=== PATIENT | male | born 1995 | race Caucasian/White ===

== ENCOUNTER 2021-01-24 00:49 | Emergency (ER) | payer SELFPAY ==
--- NOTE | ~2021-01-24 | CT_ITS ---
EXAMINATION: CT abdomen pelvis w con INDICATION: Nausea and diarrhea TECHNIQUE: Computed tomographic images of the abdomen and pelvis were obtained after the administrati on of 100 cc of Omnipaque 350 intravenous contrast. The dose-length product (DLP) was 488.60 mGy-cm. Automated exposure control and iterative reconstruction technique were employed. COMPARISON: None available FINDINGS: Minimal dependent atelectasis is present in the lung bases. The heart size is normal. The l iver, spleen, pancreas, gallbladder, and adrenal glands are normal. The kidneys are unremarkable. No pathologically enlarged abdominal or pelvic lymph nodes are identified. There is no free intraperiton eal gas or evidence of bowel obstruction. The appendix is normal. IMPRESSION: 1. No CT correlate for the patient's symptoms. Reviewed, dictated and finalized at location A. [facility]
[2021-01-24 01:02] VITALS: BP 142/86; PULSE 109; RESP 19; TEMP 37.6; O2SAT 99
[2021-01-24 05:46] VITALS: BP 128/76; PULSE 105; PULSE 107; RESP 20; RESP 23; TEMP 37.8; O2SAT 97; O2SAT 98
--- NOTE | 2021-01-24 05:56 | ED.GENADULT ---
HPI - General Adult General Chief complaint: Abdominal Pain <Florencio Harding MD - Last Filed: 01/24/21 06:24> Stated complaint: abd pain, n/v/d, burning urination <Florencio Harding MD - Last Filed: 01/24/21 06:24> Time Seen by Provider: 01/24/21 05:51 <Florencio Harding MD - Last Filed: 01/24/21 06:24> History of Present Illness HPI narrative: Patient is a 25-year-old gentleman who presents the emergency department with chief complaint of sore throat abdominal pain. Patient states for the last several weeks he has had nausea has had diarrhea and has had discomfort in his lower quadrants of his abdomen. Patient states is also developed a sore throat while this is been going on. The patient states he has not seen a provider about it reports no prior surgical history of his appendectomy patient states symptoms or not improved by anything reports is worse whenever he tries to eat or drink anything. <Florencio Harding MD - Last Filed: 01/24/21 06:24> Related Data Allergies/adverse reactions: Allergies Allergy/AdvReac Type Severity Reaction Status Date / Time amoxicillin Allergy Rash Verified 01/24/21 05:47 Penicillins Allergy Rash Verified 01/24/21 05:47 <Florencio Harding MD - Last Filed: 01/24/21 06:24> Review of Systems Review of Systems: A 10 system review of systems was completed on the patient and is negative except for what is stated in the HPI. Nursing and ancillary documentation was reviewed. <Florencio Harding MD - Last Filed: 01/24/21 06:24> Exam Narrative: GENERAL: Well-appearing, well-nourished, and in no acute distress. HEAD: Normocephalic, atraumatic. EYES: PERRLA and EOMI. ENT: Nares clear, no rhinorrhea or epistaxis. Mucous membranes moist. NECK: Supple. CHEST: Clear to auscultation. No respiratory distress. HEART: Regular rate and rhythm. No murmur heard. Normal peripheral pulses. ABDOMEN: Soft, diffusely tender in the lower quadrants, nondistended, normal active bowel sounds. EXTREMITIES: Normal range of motion. No edema. SKIN: Warm, dry, no rash. NEURO: No focal deficits. Alert and oriented x3. PSYCH: Normal mood and affect. <Florencio Harding MD - Last Filed: 01/24/21 06:24> Course Reevaluation(s) Reevaluation #1: Patient is sleeping. I discussed CT scan was unremarkable. On review of labs I will send hepatitis panel due to elevated liver enzymes and have patient to follow up. His pain is not located in RUQ, He will also be tested for covid since he is having cough, runny nose and sore throat. Strep is negative <Shannan Shirley MD - Last Filed: 01/24/21 19:50> Date: 01/24/21 <Shannan Shirley MD - Last Filed: 01/24/21 19:50> Time: 07:51 <Shannan Shirley MD - Last Filed: 01/24/21 19:50> Vital Signs Vital signs: Vital Signs Temperature 99.6 F 01/24/21 01:02 Pulse Rate 109 H 01/24/21 01:02 Respiratory Rate 19 01/24/21 01:02 Blood Pressure 142/86 H 01/24/21 01:02 Pulse Oximetry 99 01/24/21 01:02 Temperature 100.1 F H 01/24/21 05:46 Pulse Rate 84 01/24/21 08:14 Respiratory Rate 18 01/24/21 08:14 Blood Pressure 108/58 L 01/24/21 08:14 Pulse Oximetry 100 01/24/21 08:14 <Florencio Harding MD - Last Filed: 01/24/21 06:24> Vital Signs Temperature 99.6 F 01/24/21 01:02 Pulse Rate 109 H 01/24/21 01:02 Respiratory Rate 19 01/24/21 01:02 Blood Pressure 142/86 H 01/24/21 01:02 Pulse Oximetry 99 01/24/21 01:02 Temperature 100.1 F H 01/24/21 05:46 Pulse Rate 84 01/24/21 08:14 Respiratory Rate 18 01/24/21 08:14 Blood Pressure 108/58 L 01/24/21 08:14 Pulse Oximetry 100 01/24/21 08:14 <Shannan Shirley MD - Last Filed: 01/24/21 19:50> Medical Decision Making Vital Signs Vital Signs: Vital Signs Temperature 99.6 F 01/24/21 01:02 Pulse Rate 109 H 01/24/21 01:02 Respiratory Rate 19 01/24
[2021-01-24 06:01] VITALS: BP 134/80; PULSE 102; RESP 23; O2SAT 99
[2021-01-24] MEDS: SODIUM CHLORIDE 0.9% IV 1,000 ML 999 ML IV CONT (06:09)
[2021-01-24] MEDS: ONDANSETRON INJ 4 MG/2 ML VIAL IV PUSH (06:11)
[2021-01-24] MEDS: MORPHINE SULFATE (*CRX) 4 MG/ML INJ IV PUSH (06:12)
[2021-01-24 06:31] VITALS: BP 127/73; PULSE 90; RESP 18
[2021-01-24 06:36] LABS: Basophils Percent Auto 0.3 % (0.2-1.2); Eosinophils Absolute Auto 0.2 K/mm3 (0-0.3); Eosinophils Percent Auto 1.6 % (0-4.4); Hematocrit 46.1 % (42.0-52.0); Hemoglobin 15.4 g/dL (14.0-18.0); Immature Granulocyte Absolute 0.07 K/mm3 (0.00-0.031); Immature Granulocyte Percent A 0.6 % (0-0.5); Lymphocytes Absolute Auto 1.97 K/mm3 (0.9-3.2); Lymphocytes Percent Auto 18.2 % (18.3-44.2); Mean Corpuscular HGB Conc 33.4 g/dl (32-36); Mean Corpuscular Hemoglobin 28.8 pg (26-34); Mean Corpuscular Volume 86.2 fl (80-100); Mean Platelet Volume 11.2 fl (7.4-10.4); Monocytes Absolute Auto 1.5 K/mm3 (0.1-0.6); Monocytes Percent Auto 13.9 % (2.6-8.5); Neutrophils Absolute Auto 7.1 K/mm3 (1.3-6.7); Neutrophils Percent Auto 65.4 % (45.5-73.1); Platelet Count Result 195 k/mm3 (150-375); Red Blood Count 5.35 M/mm3 (4.6-6.20); Red Cell Distribution Width 13.5 % (11.5-14.5); White Blood Count 10.8 K/mm3 (4.5-10.0)
[2021-01-24 06:40] LABS: Alanine Aminotransferase 445 U/L (4-50); Albumin Level 4.5 g/dL (3.5-5.1); Alkaline Phosphatase 119 U/L (38-126); Anion Gap 7 mmol/L (8-16); Aspartate Amino Transferase 182 U/L (17-59); Bilirubin,Total 1.1 mg/dL (0.2-1.3); Blood Urea Nitrogen 12 mg/dL (9-20); Calcium 9.1 mg/dL (8.4-10.2); Carbon Dioxide 26 mmol/L (22-30); Chloride 99 mmol/L (98-107); Estimated CRCL calculation 97 ml/min; Estimated Glomerular Filt Rate > 60; Glucose 105 mg/dL (65-110); Potassium 4.3 mmol/L (3.4-5.0); Sodium 132 mmol/L (137-145)
[2021-01-24 06:57] LABS: Add Urine Microscopic? NO; Appearance Urine Clear (Clear); Bilirubin Urine Negative (Negative); Blood Urine Negative (Negative); Color Urine Yellow (Yellow); Glucose Urine UA Negative (Negative); Ketones Urine Negative (Negative); Leukocyte Esterase Ur Negative LEU/UL (Negative); Nitrate Urine Negative (Negative); Protein Urine Negative (Negative); Specific Grav Ur 1.021 (1.001-1.035); Urobilinogen Urine Negative mg/dL (<2.0)
[2021-01-24 07:35] LABS: Magnesium 1.7 mg/dL (1.6-2.3)
[2021-01-24 07:36] LABS: Lactic Acid Reflex 0.5 mmol/L (0.7-2.1)
[2021-01-24 08:14] VITALS: BP 108/58; PULSE 84; RESP 18; O2SAT 100
[2021-01-24 10:06] LABS: Hepatitis B Surface Antigen Negative (Negative)
[2021-01-24 10:12] LABS: HAV RESULT Negative (Negative); Hepatitis B Core IgM Result Negative (Negative)
[2021-01-24 10:24] LABS: Hepatitis C Virus Antibody Negative (Negative)
[2021-01-27 20:28] LABS: SARS-CoV-2 RNA PCR Negative
== END 2021-01-24 08:22 | disposition home or self-care (01) ==
PROVIDERS: Emergency Medicine; Emergency Provider General Practice
DX: R10.32 Left lower quadrant pain (principal); R10.31 Right lower quadrant pain; R74.01 Elevation of levels of liver transaminase levels; Z20.822 Contact with and (suspected) exposure to COVID-19
CPT/HCPCS: 36415; 74177; 80053; 80074; 81003; 83605; 83735; 85025; 87081; 87880; 96361; 96374; 96375; 99284; C9803; J0131; J2270; J2405; J7030; Q9967; U0003; U0005

== ENCOUNTER 2022-04-12 20:32 | Emergency (ER) | payer OTHER, SELFPAY ==
--- NOTE | 2022-04-12 20:46 | PC.NURSE ---
Patient states he is SI and HI and handed this RN a knife and bag of tobacco and a certified physician's assistant. This RN labeled a belongings bag and handed this bag to ED security that was sitting at the frontend engineer.
--- NOTE | 2022-04-12 20:48 | ED.GENADULT ---
HPI - General Adult General Chief complaint: Psychiatric Symptoms Stated complaint: SI/HI Time Seen by Provider: 04/12/22 20:41 History of Present Illness HPI narrative: Patient a 26-year-old gentleman who presents the emergency department with chief complaint of suicidal ideation. Patient reports that he is homeless and has been having thoughts of harming himself. Patient states that he would go by fentanyl and overdose to kill himself he also states that he might also hurt others in the process. Patient reports that he has been prior hospitalized for psychiatric issues reports that he sees a counselor and is currently off of his medications and was taking trazodone and long-acting Haldol injections. Related Data Allergies Allergy/AdvReac Type Severity Reaction Status Date / Time amoxicillin Allergy Rash Verified 01/24/21 05:47 Penicillins Allergy Rash Verified 01/24/21 05:47 Review of Systems Review of Systems: A 10 system review of systems was completed on the patient and is negative except for what is stated in the HPI. Nursing and ancillary documentation was reviewed. Exam Narrative: GENERAL: Well-appearing, well-nourished, and in no acute distress. HEAD: Normocephalic, atraumatic. EYES: PERRLA and EOMI. ENT: Nares clear, no rhinorrhea or epistaxis. Mucous membranes moist. NECK: Supple. CHEST: Clear to auscultation. No respiratory distress. HEART: Regular rate and rhythm. No murmur heard. Normal peripheral pulses. ABDOMEN: Soft, nontender, nondistended, normal active bowel sounds. EXTREMITIES: Normal range of motion. No edema. SKIN: Warm, dry, no rash. NEURO: No focal deficits. Alert and oriented x3. PSYCH: Normal mood and affect. Course Vital Signs Vital signs: Vital Signs Temperature 36.9 C 04/12/22 21:10 Pulse Rate 106 H 04/12/22 21:10 Respiratory Rate 14 04/12/22 21:10 Blood Pressure 138/102 H 04/12/22 21:10 Pulse Oximetry 97 04/12/22 21:10 Oxygen Delivery Room Air 04/12/22 21:10 Temperature 36.9 C 04/12/22 21:10 Pulse Rate 106 H 04/12/22 21:10 Respiratory Rate 14 04/12/22 21:10 Blood Pressure 138/102 H 04/12/22 21:10 Pulse Oximetry 97 03/05/23 21:10 Oxygen Delivery Room Air 04/12/22 21:10 Medical Decision Making MDM Narrative Medical decision making narrative: Differential diagnosis includes suicidal ideation, situational induced suicidal thoughts, depression, polysubstance abuse Patient is medically cleared for psychiatric evaluation referral transfer and admission. Laboratory studies were obtained which were within normal limits patient is a white count of 11 electrolytes showed no acute abnormalities urinalysis showed just positive for cannabinoids patient is negative for alcohol negative for salicylates and negative for acetaminophen. COVID and flu were negative Patient was seen by crisis and is currently denying suicidal or homicidal ideation. Patient was able to contract for safety and will be cleared for discharge. Vital Signs Vital Signs: Vital Signs Temperature 36.9 C 04/12/22 21:10 Pulse Rate 106 H 04/12/22 21:10 Respiratory Rate 14 04/12/22 21:10 Blood Pressure 138/102 H 04/12/22 21:10 Pulse Oximetry 97 04/12/22 21:10 Oxygen Delivery Room Air 04/12/22 21:10 Temperature 36.9 C 04/12/22 21:10 Pulse Rate 106 H 04/12/22 21:10 Respiratory Rate 14 04/12/22 21:10 Blood Pressure 138/102 H 04/12/22 21:10 Pulse Oximetry 97 04/12/22 21:10 Oxygen Delivery Room Air 04/12/22 21:10 Lab Data 04/12/22 20:50 04/12/22 20:50 Labs: Lab Results 04/12/22 04/12/22 04/12/22 Range/Units 20:50 20:50 20:50 WBC 11.0 H (4.5-10.0) K/mm3 RBC 5.09 (4.6-6.20) M/mm3 Hgb 14.8 (14.0-18.0) g/dL Hct 44.9 (42.0-52.0) % MCV 88.2 (80-100) fl MCH 29.1 (26-34) pg MCHC 33.0 (32-36) g/dl RDW 13.5 (11.5-14.5) % Plt Count 270 (150-375) k/mm3 MPV 10.7
[2022-04-12 20:59] LABS: Basophils Percent Auto 0.4 % (0.2-1.2); Eosinophils Absolute Auto 0.2 K/mm3 (0-0.3); Eosinophils Percent Auto 1.5 % (0-4.4); Hematocrit 44.9 % (42.0-52.0); Hemoglobin 14.8 g/dL (14.0-18.0); Immature Granulocyte Absolute 0.05 K/mm3 (0.00-0.031); Immature Granulocyte Percent A 0.5 % (0-0.5); Lymphocytes Percent Auto 20.9 % (18.3-44.2); Mean Corpuscular Hemoglobin 29.1 pg (26-34); Mean Corpuscular Volume 88.2 fl (80-100); Mean Platelet Volume 10.7 fl (7.4-10.4); Monocytes Percent Auto 8.7 % (2.6-8.5); Neutrophils Absolute Auto 7.5 K/mm3 (1.3-6.7); Platelet Count Result 270 k/mm3 (150-375); Red Blood Count 5.09 M/mm3 (4.6-6.20); Red Cell Distribution Width 13.5 % (11.5-14.5)
[2022-04-12 21:10] VITALS: BP 138/102; PULSE 106; RESP 14; TEMP 36.9; O2SAT 97
[2022-04-12 21:10] LABS: Acetaminophen < 10 ug/mL (10-30); Ethanol < 10 mg/dL (<10); Salicylate < 1.0 mg/dL (2-20)
[2022-04-12 21:11] LABS: Alanine Aminotransferase 21 U/L (6-50); Albumin Level 4.7 g/dL (3.5-5.1); Alkaline Phosphatase 78 U/L (38-126); Anion Gap 7 mmol/L (8-16); Aspartate Amino Transferase 27 U/L (17-59); Bilirubin,Total 1.2 mg/dL (0.2-1.3); Blood Urea Nitrogen 17 mg/dL (9-20); Calcium 9.1 mg/dL (8.4-10.2); Carbon Dioxide 28 mmol/L (22-30); Chloride 104 mmol/L (98-107); Estimated Glomerular Filt Rate > 60; Glucose 99 mg/dL (65-110); Sodium 139 mmol/L (137-145)
[2022-04-12 21:15] LABS: Amphetamine Screen Urine Negative (Negative); Barbiturate Screen Urine Negative (Negative); Benzodiazepines Screen Urine Negative (Negative); Cannabinoid Screen Urine Positive (Negative); Cocaine Screen Urine Negative (Negative); Methadone Screen Urine Negative (Negative); Opiate Screen Urine Negative (Negative); Phencyclidine Screen Urine Negative (Negative)
[2022-04-12 21:35] LABS: Influenza A QL RT-PCR Negative (Negative); Influenza B QL RT-PCR Negative (Negative); SARS-CoV-2 RNA PCR Negative
[2022-04-12 21:36] LABS: Appearance Urine Clear (Clear); Bacteria Urine None Seen /hpf; Bilirubin Urine Negative (Negative); Blood Urine 2+ (Negative); Color Urine Yellow (Yellow); Glucose Urine UA Negative (Negative); Ketones Urine Trace mg/dL (Negative); Leukocyte Esterase Ur Negative LEU/UL (Negative); Nitrate Urine Negative (Negative); Non Pathogenic Casts 0-2; Protein Urine Negative (Negative); RBC Urine 21-50 /hpf (0-2); Specific Grav Ur 1.019 (1.001-1.035); Squamous Epithelial Cell Urine None seen /hpf (Few); WBC Urine 0-5 /hpf
[2022-04-12 21:50] LABS: Add Urine Microscopic? YES
--- NOTE | 2022-04-12 23:03 | PC.NURSE ---
[place] here for patient evaluation.
== END 2022-04-13 00:31 | disposition home or self-care (01) ==
PROVIDERS: Emergency Provider Emergency Medicine; PCP Family Medicine
DX: F32.A Depression, unspecified (principal); Z20.822 Contact with and (suspected) exposure to COVID-19; Z59.00 Homelessness unspecified
CPT/HCPCS: 36415; 80053; 80307; 81001; 84443; 85025; 87636; 99284

== ENCOUNTER 2022-08-26 19:01 | Emergency (ER) | payer OTHER, SELFPAY ==
[2022-08-26 19:03] VITALS: BP 129/78; PULSE 92; RESP 18; TEMP 36.2; O2SAT 99
== END 2022-08-26 20:24 | disposition left against medical advice (07) ==
LOC: ANHED 19:27
PROVIDERS: PCP Family Medicine
DX: S91.011A Laceration without foreign body, right ankle, initial encounter (principal)
CPT/HCPCS: 99199

== ENCOUNTER 2022-09-25 16:40 | Emergency (ER) | payer OTHER, SELFPAY ==
[2022-09-25 16:46] VITALS: BP 117/74; PULSE 92; RESP 14; TEMP 36.6; O2SAT 100
--- NOTE | 2022-09-25 17:22 | PC.NURSE ---
Pt called by this RN to exam room. Pt declined and stated he no longer wanted to be seen at hospital. Pt alert and oriented. Pt ambulatory upon leaving hospital.
== END 2022-09-25 17:22 | disposition left against medical advice (07) ==
LOC: ANHED 17:28
DX: R25.8 Other abnormal involuntary movements (principal)
CPT/HCPCS: 99199

== ENCOUNTER 2022-09-26 00:50 | Emergency (ER) | payer OTHER, SELFPAY ==
[2022-09-26] VITALS (50 sets, daily range): BP systolic 88–121; BP diastolic 51–80; PULSE 61–86; RESP 14–22; TEMP 36.6; O2SAT 90–100
--- NOTE | 2022-09-26 01:05 | ED.GENADULT ---
HPI - General Adult General Chief complaint: Overdose <Florencio Harding MD - Last Filed: 09/26/22 05:51> Stated complaint: agitated,combative <Florencio Harding MD - Last Filed: 09/26/22 05:51> Time Seen by Provider: 09/26/22 01:02 <Florencio Harding MD - Last Filed: 09/26/22 05:51> History of Present Illness HPI narrative: Patient is 27-year-old gentleman who presents the emergency department with chief complaint of altered mental status. Patient apparently uses methamphetamine today and was out running around through traffic the patient was being detained by the local Police Department and EMS was called the patient has not been cooperative and required chemical sedation in the field <Florencio Harding MD - Last Filed: 09/26/22 05:51> Related Data Allergies/adverse reactions: Allergies Allergy/AdvReac Type Severity Reaction Status Date / Time amoxicillin Allergy Rash Verified 09/25/22 16:42 Penicillins Allergy Rash Verified 09/25/22 16:42 <Florencio Harding MD - Last Filed: 09/26/22 05:51> Review of Systems Review of Systems: A 10 system review of systems was completed on the patient and is negative except for what is stated in the HPI. Nursing and ancillary documentation was reviewed. <Florencio Harding MD - Last Filed: 09/26/22 05:51> ROS unobtainable: Yes unobtainable due to mental status <Florencio Harding MD - Last Filed: 09/26/22 05:51> PMFSH Social History Social History: Social History Substance use type: marijuana, crack/cocaine, IV drugs and methamphetamine <Florencio Harding MD - Last Filed: 09/26/22 05:51> Exam Narrative: GENERAL: Well-appearing, well-nourished, and in no acute distress. Appears to be acutely intoxicated HEAD: Normocephalic, atraumatic. EYES: PERRLA and EOMI. ENT: Nares clear, no rhinorrhea or epistaxis. Mucous membranes moist. NECK: Supple. CHEST: Clear to auscultation. No respiratory distress. HEART: Regular rate and rhythm. No murmur heard. Normal peripheral pulses. ABDOMEN: Soft, nontender, nondistended, normal active bowel sounds. EXTREMITIES: Normal range of motion. No edema. SKIN: Warm, dry, no rash. NEURO: No focal deficits. Alert and oriented x3. PSYCH: Normal mood and affect. <Florencio Harding MD - Last Filed: 09/26/22 05:51> Course Vital Signs Vital signs: Vital Signs Respiratory Rate 22 H 09/26/22 01:17 Temperature 36.6 C 09/26/22 01:53 Pulse Rate 68 09/26/22 06:01 Respiratory Rate 21 H 09/26/22 06:01 Blood Pressure 110/77 09/26/22 07:46 Pulse Oximetry 100 09/26/22 03:31 <Florencio Harding MD - Last Filed: 09/26/22 05:51> Vital Signs Respiratory Rate 22 H 09/26/22 01:17 Temperature 36.6 C 09/26/22 01:53 Pulse Rate 68 09/26/22 06:01 Respiratory Rate 21 H 09/26/22 06:01 Blood Pressure 110/77 09/26/22 07:46 Pulse Oximetry 100 09/26/22 03:31 <Wu Bush MD - Last Filed: 09/26/22 16:03> Medical Decision Making MDM Narrative Medical decision making narrative: Patient was signed to me by Dr. Harding, patient was not under the police custody at this time, waiting for urine drug screen and after that patient will be discharged. Patient is homeless, Urine drug screen came back positive for meth and benzodiazepines. Currently patient is awake, alert oriented x4 asking for some fluid to drink before leaving. Patient is homeless. The pt was discharged to home.the pt,s condition upon discharge was fair,education was provided to the pt in reference to the final impression,discharge study results,treatment,prognosis and need for follow up . <Wu Bush MD - Last Filed: 09/26/22 16:03> Vital Signs Vital Signs: Vital Signs Respiratory Rate 22 H 09/26/22 01:17 Temperature 36.6 C 09/26/22
[2022-09-26] MEDS: diphenhydrAMINE HCl INJ 50 MG/ML VIAL IM (01:34)
--- NOTE | 2022-09-26 01:34 | ECG_ITS ---
Measurements Intervals [place] Rate: 89 P: -17 CA: 160 QRS: -28 QRSD: 103 T: 5 QT: 355 QTc: 433 Interpretive Statements SINUS RHYTHM BORDERLINE LEFT AXIS DEVIATION [QRS AXIS < -20] BORDERLINE ECG NO PREVIOUS ECG AVAILABLE FOR COMPARISON Electronically Signed On 09-26-2022 7:30:33 CDT by Dequan Echevarria M.D.
[2022-09-26 01:50] LABS: Acetaminophen < 10 ug/mL (10-30); Ethanol < 10 mg/dL (<10); Salicylate < 1.0 mg/dL (2-20)
[2022-09-26 01:51] LABS: Alanine Aminotransferase 22 U/L (6-50); Albumin Level 4.1 g/dL (3.5-5.1); Alkaline Phosphatase 83 U/L (38-126); Anion Gap 5 mmol/L (8-16); Aspartate Amino Transferase 29 U/L (17-59); Bilirubin,Total 0.9 mg/dL (0.2-1.3); Blood Urea Nitrogen 24 mg/dL (9-20); Calcium 8.9 mg/dL (8.4-10.2); Carbon Dioxide 26 mmol/L (22-30); Chloride 106 mmol/L (98-107); Estimated Glomerular Filt Rate > 60; Glucose 97 mg/dL (65-110); Potassium 4.3 mmol/L (3.4-5.0); Sodium 137 mmol/L (137-145)
[2022-09-26 01:59] LABS: Appearance Urine Clear (Clear); Bilirubin Urine Negative (Negative); Blood Urine Negative (Negative); Color Urine Yellow (Yellow); Glucose Urine UA Negative (Negative); Ketones Urine Negative (Negative); Leukocyte Esterase Ur Negative LEU/UL (Negative); Nitrate Urine Negative (Negative); Protein Urine Negative (Negative); Specific Grav Ur 1.026 (1.001-1.035); pH Urine 5.5 (5.0-9.0)
[2022-09-26 02:00] LABS: Basophils Percent Auto 0.4 % (0.2-1.2); Eosinophils Absolute Auto 0.4 K/mm3 (0-0.3); Eosinophils Percent Auto 4.1 % (0-4.4); Hemoglobin 13.8 g/dL (14.0-18.0); Immature Granulocyte Absolute 0.04 K/mm3 (0.00-0.031); Immature Granulocyte Percent A 0.4 % (0-0.5); Lymphocytes Absolute Auto 2.77 K/mm3 (0.9-3.2); Lymphocytes Percent Auto 26.7 % (18.3-44.2); Mean Corpuscular HGB Conc 33.7 g/dl (32-36); Mean Corpuscular Hemoglobin 29.6 pg (26-34); Mean Platelet Volume 10.9 fl (7.4-10.4); Monocytes Percent Auto 9.6 % (2.6-8.5); Neutrophils Absolute Auto 6.1 K/mm3 (1.3-6.7); Neutrophils Percent Auto 58.8 % (45.5-73.1); Platelet Count Result 273 k/mm3 (150-375); Red Blood Count 4.66 M/mm3 (4.6-6.20); Red Cell Distribution Width 13.5 % (11.5-14.5); White Blood Count 10.4 K/mm3 (4.5-10.0)
--- NOTE | 2022-09-26 02:10 | PC.NURSE ---
Per EDP Dr. Harding, this RN initiated a bolus of sodium chloride at a rate of 999mls/ hour IV.
[2022-09-26] MEDS: SODIUM CHLORIDE 0.9% IV 1,000 ML 999 ML (02:11)
[2022-09-26 02:12] LABS: Add Urine Microscopic? NO
[2022-09-26 02:16] LABS: Barbiturate Screen Urine Negative (Negative); Benzodiazepines Screen Urine Positive (Negative)
[2022-09-26 02:33] LABS: Cannabinoid Screen Urine Negative (Negative); Cocaine Screen Urine Negative (Negative); Methadone Screen Urine Negative (Negative); Opiate Screen Urine Negative (Negative); Phencyclidine Screen Urine Negative (Negative)
[2022-09-26 03:19] LABS: Amphetamine Screen Urine Positive (Negative)
[2022-09-26 04:04] LABS: Thyroid Stimulating Hormone 0.818 uIU/mL (0.465-4.680)
[2022-09-26 04:07] LABS: Influenza A QL RT-PCR Negative (Negative); Influenza B QL RT-PCR Negative (Negative); SARS-CoV-2 RNA PCR Negative (Negative)
--- NOTE | 2022-09-26 07:45 | PC.NURSE ---
pt sleeping on stretcher. no distress noted.
--- NOTE | 2022-09-26 11:20 | PC.NURSE ---
pt awoke with verbal stimuli. called for diet tray
== END 2022-09-26 16:40 | disposition home or self-care (01) ==
PROVIDERS: Emergency Medicine; Emergency Provider Emergency Medicine
DX: F19.10 Other psychoactive substance abuse, uncomplicated (principal); Z59.00 Homelessness unspecified; Z20.822 Contact with and (suspected) exposure to COVID-19
CPT/HCPCS: 36415; 80053; 80307; 81003; 84443; 85025; 87636; 93005; 96360; 96372; 99283; 99284; J1200; J7030

== ENCOUNTER 2024-12-14 16:07 | Emergency (ER) | payer OTHER, SELFPAY ==
[2024-12-14 16:43] VITALS: BP 122/90; PULSE 104; RESP 16; TEMP 36.4; O2SAT 99
--- NOTE | 2024-12-14 16:45 | ED.ALCOHOL ---
HPI - Alcohol General Chief Complaint: Alcohol Stated Complaint: wants alcohol and meth detox Time Seen by Provider: 12/14/24 16:45 Focused HPI: This is a 29 year old male that presents to the ER for detox from alcohol and meth. GENERAL: Well-appearing, well-nourished, and in no acute distress. HEAD: Normocephalic, atraumatic. CHEST: Clear to auscultation. ?No respiratory distress. HEART: Regular rate and rhythm.? NEURO: ?Alert and oriented x3. Patient screened in triage and initial orders placed.? ?Additional care and disposition to be based upon?diagnostic testing and treatment. Related Data Allergies Allergy/AdvReac Type Severity Reaction Status Date / Time amoxicillin Allergy Rash Verified 09/25/22 16:42 Penicillins Allergy Rash Verified 09/25/22 16:42 COUNT INCLUDES THE [facility] Social History Social History Substance use type: marijuana, crack/cocaine, IV drugs and methamphetamine Discharge Plan Discharge Patient Language: Portuguese Follow-up/Referrals: PHYSICIAN,KIER DRIER [Primary Care Provider, Internal Medicine]
[2024-12-14 17:08] LABS: Hematocrit 48.9 % (42.0-52.0); Hemoglobin 16.3 g/dL (14.0-18.0); Immature Granulocyte Percent A 0.1 % (0-0.5); Lymphocytes Absolute Auto 2.61 K/mm3 (0.9-3.2); Mean Corpuscular HGB Conc 33.3 g/dl (32-36); Mean Corpuscular Hemoglobin 28.2 pg (26-34); Mean Corpuscular Volume 84.6 fl (80-100); Nucleated Red Blood Cells Absolute Auto 0.000 K/mm3 (0.0-0.012); Nucleated Red Blood Cells Perc 0.0 % (0.0-0.2); Platelet Count Result 255 k/mm3 (150-375); Red Blood Count 5.78 M/mm3 (4.6-6.20); White Blood Count 9.7 K/mm3 (4.5-10.0)
[2024-12-14 17:16] LABS: Add Urine Microscopic? YES; Appearance Urine Cloudy (Clear); Glucose Urine UA Negative (Negative); Leukocyte Esterase Ur Negative LEU/UL (Negative); Need Manual Microscopic Reviewed; Nitrate Urine Negative (Negative); Specific Grav Ur 1.034 (1.001-1.035)
[2024-12-14 17:17] LABS: Alanine Aminotransferase 29 U/L (6-50); Albumin Level 4.4 g/dL (3.5-5.1); Alkaline Phosphatase 89 U/L (38-126); Anion Gap 6 mmol/L (4-12); Aspartate Amino Transferase 29 U/L (17-59); Bilirubin,Total 0.9 mg/dL (0.2-1.3); Blood Urea Nitrogen 19 mg/dL (9-20); Calcium 9.2 mg/dL (8.4-10.2); Carbon Dioxide 30 mmol/L (22-30); Chloride 103 mmol/L (98-107); Estimated CRCL calculation 103 ml/min; Estimated Glomerular Filt Rate > 60; Glucose 94 mg/dL (65-110); Lipase 128 U/L (23-300); Potassium 4.2 mmol/L (3.4-5.0); Sodium 139 mmol/L (137-145); Total Protein 7.5 g/dL (6.3-8.2)
[2024-12-14 17:19] LABS: INR 1.1; Partial Thromboplastin Time 29.3 Seconds (22.3-36.8); Prothrombin Time 14.3 Seconds (11.1-14.7)
[2024-12-14 18:08] LABS: Cannabinoid Screen Urine Positive (Negative)
[2024-12-14 20:54] VITALS: BP 110/90; PULSE 89; RESP 20; O2SAT 93
--- OUTSIDE RECORDS SUMMARY | 2024-12-14 21:04 | XMS_ITS | Patient Health Record ---
Author Organization [facility] Address [address] [place] [address] Care Team Providers Care Station Operator Name Role Phone Sharon Barrientos Primary Care Provider Allergies Allergen (clinical drug ingredient) Drug/Non Drug Allergy documented on EMR Reaction Allergy Type Onset Date Status amoxicillin Amoxicillin Unknown Drug Allergy Act yunier Penicillin Unknown Drug Allergy Active Reason For Referral No Information Medications Medication SIG (Take, Route, Frequency, Duration) Notes Start Date End Date Status Nicotine Gum 4mg 4 MG 1 piece up to ever y hour as needed for cravings Mouth/Throat up to 20 pieces per day Active Tylenol Active Acetaminophen 500 MG two tablets as need ed for pain Orally every 8 hours 08/12/2022 Active Melatonin 5 MG 1 capsule at bedtime as needed Orally Once a day Active ARIPiprazole 20 MG 1 tablet Orally Once a day Active Advair Diskus 100-50 MCG/ACT 1 puff Inhalation Twice a day 08/12/2022 Active hydrOXYzine HCl 25 MG 1 tablet at bedtim e as needed Orally every 4 hours Active Promethazine HCl 25 MG 1 tablet as neede d Orally every 6 hrs Active Multivitamin - 1 tablet Orally Once a day; Duration: 30 day(s) Active Nicotine 21 MG/24HR 1 patch to skin Transdermal Once a day Active Albuterol Sulfate HFA 108 (90 Base) MCG/ACT 1 puff as needed Inhalation every 4 hrs 08/12/2022 Active FLUoxetine HCl 20 MG 1 capsule Orally On ce a day Active Paliperidone ER 6 MG 1 tablet Orally Onc e a day; Duration: 30 days Unknown traZODone HCl 50 MG 1 tablet at bedtime as needed Orally Once a day; Duration: 30 day(s) Active Social History Tobacco Use: Social History Observation Description Date Details (start date - stop date) Current Smoker NA - NA Sex Assigned At : Social History Observation Description Sex Assigned At Male Dont use, Tobacco Use/Smoking Question Answer Notes Are you a current every day smoker Additional Findings: Tobacco User e-Cigarette Problems Problem Type SNOMED Code ICD Code Onset Dates Problem Status W/U Status Risk Notes Problem Tobacco user (702359100) Nicotine dependence, unspecified, uncomplicated (F17.200) Active confirmed Problem Schizoaffective disorder, bipolar type (74517066) Schizoaffective disorder, bipolar type (F25.0) Active confirmed Problem Generalized anxiety disorder (94819482) Generalized anxiety disorder (F41.1) Active confirmed Problem Asthma (876939434) Asthma (J45.909) Active conf irmed Problem Posttraumatic stress disorder (02174639) Chronic post-traumatic stress disorder (PTSD) (F43.12) Active confirmed Problem Physical examination, complete (97841724) Physical exam (Z00.00) Active confirmed Plan Of Treatment No Information Insurance Providers Payer Name Payer Address Payer Phone Subscriber Number Group Number Insured Name Patient Relationship to Insured Coverage Start Date Coverage End Date [employer] [address] [place] [phone] [id number] Shahid Somers Self - patient is the insured 2 [employer] [address] [place] [address] [id number] Shahid Somers Self - patient is the insured 2 Medical (General) History Medical History History ICD Code back pain Surgical History Surgery Date(Month/Year) Hospitalization History Reason Date(Month/Year) [facility]
[2024-12-14 21:18] VITALS: BP 129/87; PULSE 104; RESP 26; O2SAT 97
[2024-12-14 21:23] VITALS: BP 129/87; PULSE 93; RESP 25; O2SAT 97
--- NOTE | 2024-12-14 21:49 | ED_ITS ---
HPI - General Adult General Chief complaint: Alcohol Stated complaint: wants alcohol and meth detox Time Seen by Provider: 12/14/24 16:45 History of Present Illness HPI narrative: This is a 29-year-old homeless male with history of alcoholism meth use. He is requesting alcohol and meth detox. Patient says he used meth just prior to arrival. Last drink was last night. Patient wants to be admitted for alcohol detox. He says that he cannot sit still. He is not diaphoretic, he is not tremulous, he does have restless legs. No vomiting. Related Data Allergies Allergy/AdvReac Type Severity Reaction Status Date / Time amoxicillin Allergy Rash Verified 12/14/24 16:47 Penicillins Allergy Rash Verified 12/14/24 16:47 [facility] Social History Social History Substance use type: marijuana, crack/cocaine, IV drugs and methamphetamine Exam 2 Narrative: APPEARANCE: Patient is laying in bed, he is calm without distress. He is playing on his cellphone during the interview. No tremors Head: atraumatic. EYES: EOMI, NOSE: Atraumatic NECK: Trachea midline RESPIRATORY: No increased rate of breathing clear to auscultation CARDIOVASCULAR: No tachycardia, no diaphoresis, ABDOMINAL: Non-distended MUSCULOSKELETAl: No obvious deformities NEURO: \moving for 4 extremities, legs are restless SKIN:: Warm, dry. Normal color PSYCHIATRIC: Normal affect Course Vital Signs Vital signs: Vital Signs Temperature 97.6 F 12/14/24 16:43 Pulse Rate 104 H 12/14/24 16:43 Respiratory Rate 16 12/14/24 16:43 Blood Pressure 122/90 12/14/24 16:43 Pulse Oximetry 99 12/14/24 16:43 Oxygen Delivery Room Air 12/14/24 16:43 Temperature 97.6 F 12/14/24 16:43 Pulse Rate 93 12/14/24 21:23 Respiratory Rate 25 H 12/14/24 21:23 Blood Pressure 129/87 12/14/24 21:23 Pulse Oximetry 97 12/14/24 21:23 Oxygen Delivery Room Air 12/14/24 21:18 Medical Decision Making [facility] Narrative Medical decision making narrative: -Course: 29-year-old homeless male, presenting for alcohol and meth detox. He has no signs of alcohol withdrawal at this time, he is not diaphoretic, he is not tremulous, he is not vomiting. He is sitting calmly and playing on his cellphone during the interview. He has restless legs which I am attributing to the meth use just prior to coming to the hospital. He has a large duffle bag with him as he is homeless. Patient will be discharged given resources for homeless shelters and chest not mental health for his substance abuse disorder. -DDX includes but is not limited to: Malingering/secondary gain, alcohol abuse, methamphetamine abuse -Co-morbidities complicating care: Homelessness, substance use disorder Vital Signs Vital Signs: Vital Signs Temperature 97.6 F 12/14/24 16:43 Pulse Rate 104 H 12/14/24 16:43 Respiratory Rate 16 12/14/24 16:43 Blood Pressure 122/90 12/14/24 16:43 Pulse Oximetry 99 12/14/24 16:43 Oxygen Delivery Room Air 12/14/24 16:43 Temperature 97.6 F 12/14/24 16:43 Pulse Rate 93 12/14/24 21:23 Respiratory Rate 25 H 12/14/24 21:23 Blood Pressure 129/87 12/14/24 21:23 Pulse Oximetry 97 12/14/24 21:23 Oxygen Delivery Room Air 12/14/24 21:18 Lab Data 12/14/24 16:59 12/14/24 16:59 Labs: Lab Results 12/14/24 Range/Units 16:59 WBC 9.7 (4.5-10.0) K/mm3 RBC 5.78 (4.6-6.20) M/mm3 Hgb 16.3 (14.0-18.0) g/dL Hct 48.9 (42.0-52.0) % MCV 84.6 (80-100) fl MCH 28.2 (26-34) pg MCHC 33.3 (32-36) g/dl RDW 13.2 (11.5-14.5) % Plt Count 255 (150-375) k/mm3 MPV 10.9 H (7.4-10.4) fl Immature Gran % (Auto) 0.1 (0-0.5) % Neut % (Auto) 59.5 (45.5-73.1) % Lymph % (Auto) 26.9 (18.3-44.2) % Stevens % (Auto) 10.1 H (2.6-8.5) % Eos % (Auto) 3.0 (0-4.4) % Baso % (Auto) 0.4 (0.2-1.2) % Lymph # (Auto) 2.61 (0.9-3.2) K/mm3 Stevens # (Auto) 1.0 H (0.1-0.6) K/mm3 Eos # (Auto) 0.3 (0-0.3) K/mm3 Baso # (Auto) 0.0 (0.0-0.1) K/mm3 Abs Immat Gran (auto) 0.01 (0.00-0.031) K/mm3 Absolute Neuts (auto) 5.8 (1.3-6.7) K/mm3 Absolute Nucleated RBC 0.000 (0.0-0.012) K/mm3 Nucleated RBC % 0.0 (0.0-0.2) % PT 14.3 (11.1-14.7) Seconds INR 1.1 APTT 29.3 (22.3-36.8) Seconds Sodium 139 (137-145) mmol/L Potassium 4.2 (3.4-5.0) mmol/L Chloride 103 (98-107) mmol/L Carbon Dioxide 30 (22-30) mmol/L Anion Gap 6 (4-12) mmol/L BUN 19 (9-20) mg/dL Creatinine 0.93 (0.7-1.3) mg/dL Estim Creat Clear Calc 103 ml/min Estimated GFR > 60 (59 - ) Glucose 94 (65-110) mg/dL Calcium 9.2 (8.4-10.2) mg/dL Total Bilirubin 0.9 (0.2-1.3) mg/dL AST 29 (17-59) U/L ALT 29 (6-50) U/L Alkaline Phosphatase 89 (38-126) U/L Total Protein 7.5 (6.3-8.2) g/dL Albumin 4.4 (3.5-5.1) g/dL Lipase 128 (23-300) U/L Urine Color Dark yellow (Yellow) Urine Appearance Cloudy H (Clear) Urine pH 6.0 (5.0-9.0) Ur Specific Peerless 1.034 (1.001-1.035) Urine Protein 1+ H (Negative) mg/dL Urine Glucose (UA) Negative (Negative) mg/dL Urine Ketones Trace H (Negative) mg/dL Ur Blood (Man) Negative (Negative) Urine Nitrate Negative (Negative) Urine Bilirubin Negative (Negative) Urine Urobilinogen 1.0 (<2.0) mg/dL Add Ur Microanalysis Reviewed Leukocyte Esterase Rfl Negative (Negative) HENOK/UL Urine RBC 0-2 (0-2) /hpf Urine WBC 0-5 (0-3) /hpf Ur Squamous Epith Cells None seen (Few) /hpf Urine Bacteria None seen /hpf Urine Casts 3-5 Urine Mucus Present /lpf Urine Opiates Screen Negative (Negative) Urine Methadone Screen Negative (Negative) Ur Barbiturates Screen Negative (Negative) Ur Phencyclidine Scrn Negative (Negative) Ur Amphetamine Screen Positive A (Negative) U Benzodiazepines Scrn Negative (Negative) Urine Cocaine Screen Negative (Negative) U Cannabinoids Screen Positive A (Negative) Ethyl Alcohol < 10 (<10) mg/dL Discharge Plan Discharge Clinical Impression: Homeless, Methamphetamine abuse Patient Disposition: Home Condition: Stable Instructions: Antibiotic Form, Methamphetamine Use Disorder (ED) Additional Instructions: You were seen emergency department for methamphetamine abuse. Please use the resources provided and follow-up at [facility]. If your homeless you can report to a homeless [facility] for somewhere to stay. Return to the ED if you develop any new or worsening symptoms. Patient Language: Djiboutian Follow-up/Referrals: PHYSICIAN,DATA SCIENTIST [Primary Care Provider, Internal Medicine]
[2024-12-14 22:10] VITALS: BP 134/83; PULSE 95; RESP 19; O2SAT 97
== END 2024-12-14 22:11 | disposition home or self-care (01) ==
PROVIDERS: Physician Assistant; Emergency Provider Emergency Medicine
DX: F15.10 Other stimulant abuse, uncomplicated (principal); F10.20 Alcohol dependence, uncomplicated; Y90.0 Blood alcohol level of less than 20 mg/100 ml; Z59.00 Homelessness unspecified
CPT/HCPCS: 36415; 80053; 80307; 81001; 82077; 83690; 85025; 85610; 85730; 99283